=== PATIENT | female | born 1985 | race Hispanic/Latino ===

== ENCOUNTER 2021-05-05 16:01 | Emergency (ER) | payer BC, MEDICAID ==
[~2021-05-05] VITALS: Ht 162.6 cm; Wt 72.6 kg
[2021-05-05 16:34] LABS: APPEARANCE,URINE Clear (CLEAR); BILIRUBIN,URINE Negative (NEGATIVE); COLOR,URINE Yellow (YELLOW); GLUCOSE, URINE (UA) Negative (NEGATIVE); KETONES,URINE Trace mg/dL (NEGATIVE); LEUKOCYTE ESTERASE ,URINE Trace (NEGATIVE); NITRATE,URINE Negative (NEGATIVE); OCCULT BLOOD,URINE Negative (NEGATIVE); PH,URINE 5.5 (5.0-8.0); PROTEIN,URINE Trace mg/dL (NEGATIVE)
[2021-05-05 16:51] LABS: RBC,URINE 0-1 /HPF (0-1)
[2021-05-05 16:52] LABS: BACTERIA,URINE Few /HPF (None Seen); SQUAMOUS EPITHELIAL CELL,UR Moderate /HPF (0-2)
[2021-05-05] MEDS ORDERED: PHEN-847 PO (21:40)
[2021-05-05 21:56] VITALS: BP 114/78
== END 2021-05-05 21:56 | disposition home or self-care (01) ==
LOC: EDH 16:01
DX: R30.0 Dysuria (principal)
CPT/HCPCS: 81001; 81025